=== PATIENT | female | born 1940 | race Caucasian/White ===

== ENCOUNTER 2021-05-19 17:41 | Emergency (ER) | payer MEDICARE, BC, SELFPAY ==
--- NOTE | ~2021-05-19 | CT_ITS ---
EXAMINATION: CT brain wo con DATE: 05/19/2021 18:44 INDICATION: Head injury. Headache. Laceration to the vertex of the head. TECHNIQUE: Computed tomography (CT) of the head was performed without intravenous contrast. The dose- length product was 605.33 mGy-cm. Automated exposure control and iterative reconstruction technique w ere employed. COMPARISON: None FINDINGS: Brain parenchymal volume is normal for age. There is left frontal scalp hematoma. No acute intracranial hemorrhage, infarction, mass or mass effect. No ventriculomegaly or midline shift. Basil ar cisterns are patent. Paranasal sinuses and mastoids are pneumatized. There is intracranial atheros clerosis. There are scattered mild periventricular and subcortical white matter changes, most likely related to small vessel ischemic disease (microangiopathy). IMPRESSION: 1. No acute intracranial abnormality. Reviewed, dictated and finalized at location A. [facility] CREDIT
--- NOTE | 2021-05-19 17:52 | ED.FALL ---
HPI - Fall General Chief Complaint: Head Injury Stated Complaint: scalp lac Time Seen by Provider: 05/19/21 17:50 Source: patient Mode of arrival: ambulatory Limitations: no limitations History of Present Illness HPI Narrative: This is a 80 year old female that presents to the ER for head injury just prior to arrival. Reports a cake stand fell off of the top of her cabinets and hit her in the head. Denies loss of consciousness. Reports laceration to the area. Reports hematoma to her forehead. She takes a baby aspirin daily. She is not up-to-date on tetanus. Denies vision changes, vomiting, numbness, or weakness. Related Data Allergies Allergy/AdvReac Type Severity Reaction Status Date / Time Penicillins Allergy Verified 05/19/21 18:18 Review of Systems Review of Systems: CONSTITUTIONAL: Denies fever EYES: Denies visual changes GASTROINTESTINAL: Denies vomiting NEUROLOGIC: Reports headache. Denies numbness, or weakness. All systems reviewed & are unremarkable except as noted in HPI and below PMFSH Past Medical History Medical History (Updated 05/19/21 @ 19:12 by Odalis Palm PA-C) History of hypothyroidism Surgical History Surgical History (Updated 05/19/21 @ 17:53 by Odalis Palm PA-C) History of hysterectomy History of thyroidectomy Social History Social History (Updated 05/19/21 @ 18:20 by Odalis Palm PA-C) Smoking status: Never smoker Exam Narrative: GENERAL: Elderly, well-nourished, and in no acute distress. HEAD: Normocephalic. Hematoma to the forehead. 3 cm linear laceration to the top of the scalp into subcutaneous tissue EYES: PERRLA and EOMI. ENT: Nares clear, no rhinorrhea or epistaxis. Mucous membranes moist. Oropharynx without tonsillar hypertrophy exudate or other lesions. Bilateral TMs pearly roman non-bulging NECK: Supple. No adenopathy or masses. No midline cervical spine tenderness CHEST: Clear to auscultation. No respiratory distress. No wheezes rales or rhonchi HEART: Regular rate and rhythm. No murmur heard. Normal peripheral pulses. EXTREMITIES: Normal range of motion. No edema. SKIN: Warm, dry, no rash. NEURO: No focal deficits. Alert and oriented x3. Cranial nerves II through XII grossly intact PSYCH: Normal mood and affect Course Vital Signs Vital signs: Vital Signs Temperature 98.0 F 05/19/21 18:01 Pulse Rate 93 05/19/21 18:01 Respiratory Rate 18 05/19/21 18:01 Blood Pressure 168/67 H 05/19/21 18:01 Pulse Oximetry 100 05/19/21 18:01 Temperature 98.0 F 05/19/21 18:01 Pulse Rate 93 05/19/21 18:01 Respiratory Rate 18 05/19/21 18:01 Blood Pressure 168/67 H 05/19/21 18:01 Pulse Oximetry 100 05/19/21 18:01 Procedures Laceration Laceration 1: Date: 05/19/21 Time: 19:09 Site: scalp Size (cm): 3 Description: linear Depth: simple, single layer Local Anesthetic: lidocaine 1% and with epi Amount of anesthesia used (mL): 3 Pre-repair: irrigated ====== Skin Level ====== Skin layer closed with: amy Number of sutures: 6 ====== Subcutaneous Layer ====== ====== Muscle Layer ====== ====== Tendon Layer ====== MDM - Fall MDM Narrative Medical decision making narrative: Patient presents emergency department after head injury today with contusions and laceration to the scalp. Patient is neurologically intact. CT scan of the brain is without acute findings. Patient's wound was irrigated and closed with amy. She was educated on wound care. She was updated on tetanus. Patient is stable and felt appropriate for further outpatient evaluation. Patient is to follow-up with primary care doctor. She was given warnings to return to the ER Imaging Data Radiologist's impression: ITS Impressions Head CT 05/19/21 18:45 IMPRESSION: 1. No acute intracranial abnormality. Critical Care Time Critical Care Time Criti
[2021-05-19 18:01] VITALS: BP 168/67; PULSE 93; RESP 18; TEMP 36.7; O2SAT 100
[2021-05-19] MEDS: ACETAMINOPHEN 500 MG TABLET 1000 MG PO (18:20)
[2021-05-19] MEDS: TETANUS,DIPHTHERIA,AC PERTUSSIS ADULT (0.5 ML) BOOSTRIX IM (18:21)
== END 2021-05-19 19:20 | disposition home or self-care (01) ==
PROVIDERS: Emergency Provider Emergency Medicine; PCP Internal Medicine
DX: S01.01XA Laceration without foreign body of scalp, initial encounter (principal); Z23 Encounter for immunization; E89.0 Postprocedural hypothyroidism; W20.8XXA Other cause of strike by thrown, projected or falling object, initial encounter
CPT/HCPCS: 12002; 70450; 90471; 90715; 99283; A9270

== ENCOUNTER 2022-12-15 12:28 | Emergency (ER) | payer MEDICARE, BC, SELFPAY ==
--- NOTE | 2022-12-15 12:38 | ED.LOWEXIN ---
HPI - Extremity Injury (Lower) General Chief Complaint: Extremity Injury, Lower Stated Complaint: Left Foot Pain Time Seen by Provider: 12/15/22 12:32 Source: patient Mode of arrival: ambulatory Limitations: no limitations History of Present Illness HPI Narrative: Patient is an 82-year-old female who presents with left foot pain after stepping on a nail last night, removed nail herself. Requesting tetanus shot. Denies any pain to foot, bleeding or oozing from wound. States she cleaned with hydrogen peroxide and applied antibiotic ointment. Related Data Home Medications Medication Instructions Recorded Confirmed levothyroxine 88 mcg tablet 88 mcg DIRECTED 12/15/22 12/15/22 (Synthroid) Allergies Allergy/AdvReac Type Severity Reaction Status Date / Time Penicillins Allergy Verified 05/19/21 18:18 Review of Systems Review of Systems: All systems reviewed & are unremarkable except as noted in HPI and below Constitutional: Constitutional: Denies body ache(s), Denies chills, Denies fatigue, Denies fever(s), Denies headache(s), Denies malaise and Denies weakness Eyes: Eyes: Denies blurry vision, Denies irritation and Denies loss of vision ENT: Denies otalgia, Denies headache(s), Denies nasal discharge, Denies sinus pain and Denies sore throat Cardiovascular: Cardiovascular: Denies chest pain, Denies irregular heart rhythm and Denies dyspnea Respiratory: Respiratory: Denies dyspnea Gastrointestinal: Gastrointestinal: Denies abdominal pain, Denies melena, Denies hematochezia, Denies diarrhea, Denies nausea and Denies vomiting Musculoskeletal: Musculoskeletal: Denies back pain, Denies myalgias and Denies arthralgias Integumentary/Breasts: Skin/Breast: Denies pruritus, Denies rash and Reports wounds Neurologic: Denies headache(s), Denies loss of vision and Denies weakness Psychiatric: Psychiatric: Reports no additional psychiatric complaints Endocrine: Endocrine: Denies fatigue PMFSH Past Medical History Medical History (Updated 12/15/22 @ 12:56 by Sherlyn Hooker APRN) History of hypothyroidism Surgical History Surgical History (Updated 05/19/21 @ 17:53 by Odalis Palm PA-C) History of hysterectomy History of thyroidectomy Social History Social History (Updated 05/19/21 @ 18:20 by Odalis Palm PA-C) Smoking status: Never smoker Comments At time of signature, agree with nursing past medical, surgical, social and family history. There is no relevant family history pertinent to the presenting complaint. Exam Const: General: cooperative, healthy appearing, comfortable, no acute distress and well nourished Nutritional Appearance: well nourished Orientation/consciousness: patient oriented x3 Limitations: no limitations HENMT: Head: normal to inspection, normocephalic and atraumatic Ears: hearing grossly normal bilaterally and external ears normal Face/Nose/Sinus: Normal external nose present, normal facial exam and face symmetric Face and sinus: normal facial exam and face symmetric Mouth: Yes lip normal Eyes: General: appearance normal, both eyes and all related structures Alignment and Position: alignment normal and position normal Periorbital: periorbital findings normal Eyelids: eyelids normal Pupils: Equal, round and reactive pupils present EOM: EOMs intact bilaterally Neck: Neck: normal visual inspection, full ROM and supple Chest: Chest palpation & inspection: normal inspection of the chest Resp: Effort & Inspection: normal respiratory effort and able to speak in complete sentences Auscultation: clear to auscultation bilaterally Cardio: Rate: regular rate Rhythm: regular rhythm Heart sounds: S1 normal heart sound present and S2 normal heart sound present GI: Inspection: normal to inspection Skin: General skin exam: normal color and no rashes or lesions noted Neuro: General: patient oriented x3 and moves all extremities Cranial nerves: Yes Equal, round and r
[2022-12-15 12:41] VITALS: BP 140/54; PULSE 91; RESP 18; TEMP 37.4; O2SAT 100
[2022-12-15 12:44] VITALS: BP 140/54; PULSE 91; RESP 18; TEMP 37.4; O2SAT 100
[2022-12-15] MEDS: TETANUS,DIPHTHERIA,AC PERTUSSIS ADULT (0.5 ML) BOOSTRIX IM (12:53)
== END 2022-12-15 13:14 | disposition home or self-care (01) ==
PROVIDERS: Emergency Provider Nurse Practitioner Family; PCP Internal Medicine
DX: S91.332A Puncture wound without foreign body, left foot, initial encounter (principal); W45.0XXA Nail entering through skin, initial encounter; Z23 Encounter for immunization; E89.0 Postprocedural hypothyroidism
CPT/HCPCS: 90471; 90715; 99212; G0463

== ENCOUNTER 2024-05-20 15:49 | Emergency (ER) | payer MEDICARE, BC, SELFPAY ==
--- NOTE | 2024-05-20 15:50 | ED_ITS ---
HPI - Wound/Laceration General Chief Complaint: Wound/Laceration Stated Complaint: Right Hand Thumb Laceration Time Seen by Provider: 05/20/24 15:50 Source: patient Mode of arrival: ambulatory Limitations: no limitations History of Present Illness HPI narrative: Melanie is an 83-year-old female patient presenting to the clinic today with complaints of a right hand thumb laceration that occurred just prior to arrival. She reports she has open up a can of corn when she could not open the hand completely she grabbed a knife and then cut her thumb on the side of the can. Bleeding is controlled at this time. Tetanus is up-to-date. Related Data Home Medications Medication Instructions Recorded Confirmed levothyroxine 88 mcg tablet 88 mcg PO DAILY 12/15/22 05/20/24 (Synthroid) amlodipine 5 mg tablet 5 mg PO DAILY 05/20/24 05/20/24 metformin 500 mg tablet 500 mg PO DAILY 05/20/24 05/20/24 metoprolol succinate 25 mg 25 mg PO DAILY 05/20/24 05/20/24 tablet,extended release 24 hr rosuvastatin 10 mg tablet 10 mg PO DAILY 05/20/24 05/20/24 Allergies Allergy/AdvReac Type Severity Reaction Status Date / Time Penicillins Allergy Hives Verified 05/20/24 15:52 Review of Systems Review of Systems: Pertinent positives per HPI. Patient denies any fever, chills, rash, headache, visual changes, dizziness, cough, runny nose, sore throat, shortness of breath, chest pain, palpitations, nausea, vomiting, diarrhea, constipation, abdominal pain, or any urinary issues. [facility] Past Medical History Medical History (Updated 05/20/24 @ 16:33 by Mikel Bond APRN) History of hypothyroidism Surgical History Surgical History History of hysterectomy History of thyroidectomy Social History Social History (Updated 05/19/21 @ 18:20 by Odalis Palm PA-C) Smoking status: Never smoker Comments At the time of my signature, I reviewed and agree with the nursing past medical, surgical, social, and family history. There is no relevant family history pertinent to the patient complaint. Exam Narrative: General: Well-developed, well nourished, in no apparent distress Head: Normocephalic, atraumatic. Cardio: Regular rate and rhythm, s1 and s2 normal, no murmur appreciated. Resp: Clear to auscultation bilaterally, no rhonchi, rales, wheezing or rubs. Integumentary: [place], warm, and dry, 1.5 cm distal volar thumb flap laceration without nail involvement. Bleeding controlled Course Course Emergency Course: Portions of this record may have been created with voice recognition software. Level of Care: Express Care Visit Vital Signs Vital signs: Vital Signs Temperature 36.3 C L 05/20/24 16:03 Pulse Rate 88 05/20/24 16:03 Respiratory Rate 16 05/20/24 16:03 Blood Pressure 156/64 H 05/20/24 16:03 Pulse Oximetry 100 05/20/24 16:03 Oxygen Delivery Room Air 05/20/24 16:03 Temperature 36.3 C L 05/20/24 16:03 Pulse Rate 88 05/20/24 16:03 Respiratory Rate 16 05/20/24 16:03 Blood Pressure 156/64 H 05/20/24 16:03 Pulse Oximetry 100 05/20/24 16:03 Oxygen Delivery Room Air 05/20/24 16:03 Vital signs reviewed Procedures Laceration Laceration 1: Date: 05/20/24 Site: hand (Right thumb) Side (If applicable): right Size (cm): 1.5 Description: flap and irregular Depth: simple, single layer Local Anesthetic: lidocaine 1% Amount of anesthesia used (mL): 1 Pre-repair: wound explored and irrigated ====== Skin Level ====== Skin layer closed with: nylon Size (cm): 5-0 Number of sutures: 3 Technique: simple, interrupted ====== Subcutaneous Layer ====== ====== Muscle Layer ====== ====== Tendon Layer ====== Dressing: Verbal consent obtained for laceration repair. Risk and benefits explained and p atient voiced understanding. Area was cleansed with antiseptic wound wash and a 25 gauge needle was then used to instill (1) ml of 1% lidocaine without epi into the wound edges. Area was prepped and draped using sterile technique. A 5-0 suture on a p needle was used to place (3) interrupted sutures bringing the wound edges together- well approximated. Patient tolerated procedure well. Sterile dressing applied. MDM - Wound/Laceration MDM Narrative Medical decision making narrative: At the time of visit patient is resting comfortably on the exam table. Patient appears to be nontoxic. Procedures: Laceration repair was performed interrupted sutures were placed into the wound bringing the wound edges well approximate. Patient tolerated well. Plan: Laceration repair was performed. Three interrupted sutures were placed. Supportive measures were discussed with the patient and they voiced understanding discharge instructions and agrees to treatment plan. Return precautions reviewed Differential Diagnosis Differential diagnosis: Likely laceration, abscess, abrasion and avulsion of skin Discharge Plan Discharge Clinical Impression: Laceration of thumb Qualifiers: Encounter type: initial encounter Damage to nail status: without damage Foreign body presence: without foreign body Laterality: right Qualified Code(s): S61.011A - Laceration without foreign body of right thumb without damage to nail, initial encounter Patient Disposition: Home, Self-Care Condition: Stable Instructions: Antibiotic Form, Finger Laceration (ED) Additional Instructions: Leave bandage on for 24 hours then may remove and apply band aide covering as needed. Wash daily with soap and water Keep wound clean and dry Skin sutures out in 7 days. Watch for signs and symptoms of infection- redness, streaking, swelling, purulent discharge, or increase in pain. Follow up with your PCP for suture removal or return to the Express care. Prescriptions: No Action levothyroxine [Synthroid] 88 mcg tablet 88 mcg PO DAILY metformin 500 mg tablet 500 mg PO DAILY amlodipine 5 mg tablet 5 mg PO DAILY metoprolol succinate 25 mg tablet extended release 24 hr 25 mg PO DAILY rosuvastatin 10 mg tablet 10 mg PO DAILY Follow-up/Referrals: Manuel,Dagmar Rodriguez MD [Primary Care Provider] - Time of Disposition: 16:32 Quality NIHSS Nursing Documentation ED NIHSS nursing documentation: reviewed/agree
[2024-05-20 16:03] VITALS: BP 156/64; PULSE 88; RESP 16; TEMP 36.3; O2SAT 100
[2024-05-20] MEDS: LIDOCAINE HCL 1% LOCAL INJ 2 ML AMPUL 4 ML INFILTRATE (16:14)
== END 2024-05-20 16:40 | disposition home or self-care (01) ==
PROVIDERS: Emergency Provider Nurse Practitioner Family; PCP Internal Medicine
DX: S61.011A Laceration without foreign body of right thumb without damage to nail, initial encounter (principal); Z79.899 Other long term (current) drug therapy; W26.0XXA Contact with knife, initial encounter
CPT/HCPCS: 12001; 99212; G0463; J2003

== ENCOUNTER 2024-05-27 12:10 | Emergency (ER) | payer MEDICARE, BC, SELFPAY ==
[2024-05-27 12:21] VITALS: BP 134/64; PULSE 89; RESP 16; TEMP 36.2; O2SAT 97
--- NOTE | 2024-05-27 12:22 | ED_ITS ---
HPI - Wound/Laceration General Chief Complaint: Wound/Laceration Stated Complaint: Stitches Removal Time Seen by Provider: 05/27/24 12:13 Source: patient Mode of arrival: ambulatory Limitations: no limitations History of Present Illness HPI narrative: Patient is an 83-year-old female who presents with 3 sutures in right thumb. Patient had them placed here 05/20. Patient concern for redness surrounding area Related Data Home Medications Medication Instructions Recorded Confirmed levothyroxine 88 mcg tablet 88 mcg PO DAILY 12/15/22 05/27/24 (Synthroid) amlodipine 5 mg tablet 5 mg PO DAILY 05/20/24 05/27/24 metformin 500 mg tablet 500 mg PO DAILY 05/20/24 05/27/24 metoprolol succinate 25 mg 25 mg PO DAILY 05/20/24 05/27/24 tablet,extended release 24 hr rosuvastatin 10 mg tablet 10 mg PO DAILY 05/20/24 05/27/24 Allergies Allergy/AdvReac Type Severity Reaction Status Date / Time Penicillins Allergy Hives Verified 05/27/24 12:11 Review of Systems Review of Systems: All systems reviewed & are unremarkable except as noted in HPI and below Constitutional: Constitutional: Denies body ache(s), Denies chills, Denies fatigue, Denies fever(s), Denies headache(s), Denies malaise and Denies weakness Eyes: Eyes: Denies blurry vision, Denies irritation and Denies loss of vision ENT: Denies otalgia, Denies headache(s), Denies nasal discharge, Denies sinus pain and Denies sore throat Cardiovascular: Cardiovascular: Denies chest pain, Denies irregular heart rhythm and Denies dyspnea Respiratory: Respiratory: Denies dyspnea Gastrointestinal: Gastrointestinal: Denies abdominal pain, Denies melena, Denies hematochezia, Denies diarrhea, Denies nausea and Denies vomiting Musculoskeletal: Musculoskeletal: Denies back pain, Denies myalgias and Denies arthralgias Integumentary/Breasts: Skin/Breast: Denies pruritus, Reports erythema and Denies rash Neurologic: Denies headache(s), Denies loss of vision and Denies weakness Psychiatric: Psychiatric: Reports no additional psychiatric complaints Endocrine: Endocrine: Denies fatigue PMFSH Past Medical History Medical History History of hypothyroidism Surgical History Surgical History History of hysterectomy History of thyroidectomy Social History Social History Smoking status: Never smoker Comments At time of signature, agree with nursing past medical, surgical, social and family history. There is no relevant family history pertinent to the presenting complaint. Exam Const: General: cooperative, healthy appearing, comfortable, no acute distress and well nourished Nutritional Appearance: well nourished Orientati on/consciousness: patient oriented x3 Limitations: no limitations HENMT: Head: normal to inspection, normocephalic and atraumatic Ears: hearing grossly normal bilaterally and external ears normal Face/Nose/Sinus: Normal external nose present, normal facial exam and face symmetric Face and sinus: normal facial exam and face symmetric Mouth: Yes lip normal Eyes: General: appearance normal, both eyes and all related structures Al ignment and Position: alignment normal and position normal Periorbital: periorbital findings normal Eyelids: eyelids normal Pupils: Equal, round and reactive pupils present EOM: EOMs intact bilaterally Neck: Neck: normal visual inspection, full ROM and supple Chest: Chest palpation & inspection: normal inspection of the chest Resp: Effort & Inspection: normal respiratory effort and able to speak in complete sentences Auscultation: clear to auscultation bilaterally Cardio: Rate: regular rate Rhythm: regular rhythm Heart sounds: S1 normal heart sound present and S2 normal heart sound present GI: Inspection: normal to inspection Skin: General skin exam: normal color and no rashes or lesions noted Neuro: General: patient oriented x3 and moves all extremities Cranial nerves: Yes Equal, round and reactive pupils present Speech: normal speech Gait exam (Neuro): Normal gait present Extrem: General: normal to inspection, full ROM and no edema Hand/finger images: 1. Healed laceration with surrounding erythema and warmth Psych: Appearance: grossly normal and well kempt Mental Status: mental status grossly normal Speech and movement: Normal speech and movement present Affect: normal affect Attitude: cooperative Thought process: Normal thought process present Course Course Emergency Course: Patient is aware of diagnosis, understands and agrees to treatment plan. Antic ipatory guidance given. Patient agrees to follow-up as directed and is aware of reasons to seek care at the emergency department. Portions of this record may have been created with voice recognition software Level of Care: Express Care Visit Vital Signs Vital signs: Vital Signs Temperature 36.2 C L 05/27/24 12:21 Pulse Rate 89 05/27/24 12:21 Respiratory Rate 16 05/27/24 12:21 Blood Pressure 134/64 05/27/24 12:21 Pulse Oximetry 97 05/27/24 12:21 Oxygen Delivery Room Air 05/27/24 12:21 Temperature 36.2 C L 05/27/24 12:21 Pulse Rate 89 05/27/24 12:21 Respiratory Rate 16 05/27/24 12:21 Blood Pressure 134/64 05/27/24 12:21 Pulse Oximetry 97 05/27/24 12:21 Oxygen Delivery Room Air 05/27/24 12:21 Reviewed MDM - Wound/Laceration MDM Narrative Medical decision making narrative: 3 sutures removed Exam findings show no acute concerns or changes; patient is non-toxic appearing and is in no distress.? Patient is appropriate for outpatient treatment and follow-up. Discharge instructions reviewed with patient, as well as provided in writing per nursing staff. The instructions also include specific and strict return/GO TO THE ER as well as f/u information. All questions have been answered, and the patient deny any further questions with discharge and discharge plan. Differential Diagnosis Differential diagnosis: Likely laceration and other (Cellulitis) Medical Records Attestation: I reviewed the patient's medical records. Discharge Plan Discharge Clinical Impression: Cellulitis Qualifiers: Site of cellulitis: extremity Site of cellulitis of extremity: finger Laterality: right Qualified Code(s): L03.011 - Cellulitis of right finger Patient Disposition: Home, Self-Care Condition: Stable Instructions: Cellulitis (ED) Additional Instructions: Please follow up with your Primary Care Doctor within 48-72 hours - call for an appointment. Rest and elevate affected area; apply moist heat 3-4 times daily for 10-15 minutes. Take Motrin 600mg every 8 hours with food for pain. Please take Antibiotics as directed. If you experience any worsening redness, swelling, streaking (red lines), fever or chills please go to the ER Prescriptions: New cefuroxime axetil 500 mg tablet 500 mg PO BID 5 Days Qty: 10 0RF No Action levothyroxine [Synthroid] 88 mcg tablet 88 mcg PO DAILY metformin 500 mg tablet 500 mg PO DAILY amlodipine 5 mg tablet 5 mg PO DAILY metoprolol succinate 25 mg tablet extended release 24 hr 25 mg PO DAILY rosuvastatin 10 mg tablet 10 mg PO DAILY Follow-up/Referrals: Manuel,Dagmar Rodriguez MD [Primary Care Provider] - 3 Days Time of Disposition: 12:32
== END 2024-05-27 12:35 | disposition home or self-care (01) ==
PROVIDERS: Emergency Provider Nurse Practitioner Family; PCP Internal Medicine
DX: T81.41XA Infection following a procedure, superficial incisional surgical site, initial encounter (principal); L03.011 Cellulitis of right finger; S61.011D Laceration without foreign body of right thumb without damage to nail, subsequent encounter; X58.XXXD Exposure to other specified factors, subsequent encounter; E89.0 Postprocedural hypothyroidism
CPT/HCPCS: 99213; G0463

== ENCOUNTER 2024-12-15 15:59 | Emergency (ER) | payer MEDICARE, BC, SELFPAY ==
[2024-12-15 16:13] VITALS: BP 138/62; PULSE 82; RESP 16; TEMP 37.2; O2SAT 100
--- NOTE | 2024-12-15 16:38 | ED.SKABFB ---
HPI - Skin/Abscess/Foreign Bdy General Chief complaint: Extremity Problem,Nontraumatic Stated complaint: hands are numb/burning Time Seen by Provider: 12/15/24 16:01 Source: patient Mode of arrival: ambulatory Limitations: no limitations History of Present Illness HPI narrative: Patient is 84-year-old female who presents with bilateral hand burning numb irritation after coming in contact with 45% vinegar trying to kill weeds. Patient wrist hand under water and then used [place] dish soap to wash hands. Patient states hands feel dry, stiff and burning. Denies any blisters or open wounds. Related Data Home Medications ?Medication ?Instructions ?Recorded ?Confirmed ?Last Taken ?Type levothyroxine 88 mcg tablet 88 mcg PO DAILY 12/15/22 05/27/24 Unknown History (Synthroid) amlodipine 5 mg tablet 5 mg PO DAILY 05/20/24 05/27/24 Unknown History metformin 500 mg tablet 500 mg PO DAILY 05/20/24 05/27/24 Unknown History metoprolol succinate 25 mg 25 mg PO DAILY 05/20/24 05/27/24 Unknown History tablet,extended release 24 hr rosuvastatin 10 mg tablet 10 mg PO DAILY 05/20/24 05/27/24 Unknown History aspirin 81 mg tablet,delayed 81 mg PO DAILY 12/15/24 Unknown History release (Adult Aspirin Regimen) Allergies Allergy/AdvReac Type Severity Reaction Status Date / Time Penicillins Allergy Hives Verified 12/15/24 16:12 Review of Systems Review of Systems: All systems reviewed & are unremarkable except as noted in HPI and below Constitutional: Constitutional: Denies body ache(s), Denies chills, Denies fatigue, Denies fever(s), Denies headache(s), Denies malaise and Denies weakness Eyes: Eyes: Denies blurry vision, Denies irritation and Denies loss of vision ENT: Denies otalgia, Denies headache(s), Denies nasal discharge, Denies sinus pain and Denies sore throat Cardiovascular: Cardiovascular: Denies chest pain, Denies irregular heart rhythm and Denies dyspnea Respiratory: Respiratory: Denies dyspnea Gastrointestinal: Gastrointestinal: Denies abdominal pain, Denies melena, Denies hematochezia, Denies diarrhea, Denies nausea and Denies vomiting Musculoskeletal: Musculoskeletal: Denies back pain, Denies myalgias and Denies arthralgias Integumentary/Breasts: Skin/Breast: Denies pruritus, Denies rash and Reports skin pain Neurologic: Denies headache(s), Denies loss of vision and Denies weakness Psychiatric: Psychiatric: Reports no additional psychiatric complaints Endocrine: Endocrine: Denies fatigue PMFSH Past Medical History Medical History History of hypothyroidism Surgical History Surgical History History of thyroidectomy History of hysterectomy Social History Social History Smoking status: Never smoker Comments At time of signature, agree with nursing past medical, surgical, social and family history. There is no relevant family history pertinent to the presenting complaint. Exam Const: General: cooperative, healthy appearing, comfortable, no acute distress and well nourished Nutritional Appearance: well nourished Orientation/consciousness: patient oriented x3 Limitations: no limitations HENMT: Head: normal to inspection, normocephalic and atraumatic Ears: hearing grossly normal bilaterally and external ears normal Face/Nose/Sinus: Normal external nose present, normal facial exam and face symmetric Face and sinus: normal facial exam and face symmetric Mouth: Yes lip normal Eyes: General: appearance normal, both eyes and all related structures Alignment and Position: alignment normal and position normal Periorbital: periorbital findings normal Eyelids: eyelids normal Pupils: Equal, round and reactive pupils present EOM: EOMs intact bilaterally Neck: Neck: normal visual inspection, full ROM and supple Chest: Chest palpation & inspection: normal inspection of the chest Resp: Effort & Inspection: normal respiratory effort and able to speak in complete sentences Auscultation: clear to auscultation bilaterally Cardio: Rate: regular rate Rhythm: regular rhythm Heart sounds: S1 normal heart sound present and S2 normal heart sound present GI: Inspection: normal to inspection Skin: General skin exam: normal color and no rashes or lesions noted Neuro: General: patient oriented x3 and moves all extremities Cranial nerves: Yes Equal, round and reactive pupils present Speech: normal speech Gait exam (Neuro): Normal gait present Extrem: General: normal to inspection, full ROM and no edema Right upper extremity: wrist normal to inspection, normal ROM, normal vascular exam and radial pulse present; no tenderness and no swelling and Extremity exam: right hand normal to inspection, normal capillary refill, neuromotor exam normal wrist extension normal, thumb opposition normal, thumb IP flexion normal, thumb ADduction normal and fingers 2-5 ABduction normal, neurosensory exam normal radial nerve sensory function normal, ulnar nerve sensory function normal, median nerve sensory function normal and digital nerve sensory function normal, tendon exam normal of all digits extensor tendon, flexor digitorum profundus and flexor digitorum superficialis, normal ROM of fingers, no swelling and other (skin is dry and tough ); no tenderness and no unusual warmth Left upper extremity: wrist normal to inspection, normal ROM, normal vascular exam and radial pulse present; no tenderness and no swelling and hand normal to inspection, normal capillary refill, neuromotor exam normal Details: wrist extension normal, thumb opposition normal, thumb IP flexion normal, thumb ADduction normal and fingers 2-5 ABduction normal, neurosensory exam normal Details: radial nerve sensory function normal, ulnar nerve sensory function normal, median nerve sensory function normal and digital nerve sensory function normal, tendon exam normal Location: of all digits Details: extensor tendon, flexor digitorum profundus and flexor digitorum superficialis, normal ROM of fingers, no swelling and other (skin is dry and tough ); no tenderness and no unusual warmth Psych: Appearance: grossly normal and well kempt Mental Status: mental status grossly normal Speech and movement: Normal speech and movement present Affect: normal affect Attitude: cooperative Thought process: Normal thought process present Course Course Emergency Course: Patient is aware of diagnosis, understands and agrees to treatment plan. Anticipatory guidance given. Patient agrees to follow-up as directed and is aware of reasons to seek care at the emergency department. Portions of this record may have been created with voice recognition software Level of Care: Express Care Visit Vital Signs Vital signs: Vital Signs Temperature 37.2 C 12/15/24 16:13 Pulse Rate 82 12/15/24 16:13 Respiratory Rate 16 12/15/24 16:13 Blood Pressure 138/62 12/15/24 16:13 Pulse Oximetry 100 12/15/24 16:13 Oxygen Delivery Room Air 12/15/24 16:13 Temperature 37.2 C 12/15/24 16:13 Pulse Rate 82 12/15/24 16:13 Respiratory Rate 16 12/15/24 16:13 Blood Pressure 138/62 12/15/24 16:13 Pulse Oximetry 100 12/15/24 16:13 Oxygen Delivery Room Air 12/15/24 16:13 Reviewed MDM - Skin/Abscess/Foreign Bdy MDM Narrative Medical decision making narrative: Spoke to [employer] [employer]( ). Based on recommendations for an patient hands under warm water for 15 minutes. Patient reports moderate relief of symptoms. Will provide patient with steroid cream for itchiness along with recommending Aquaphor. Pt well hydrated appearing, in no respiratory distress, hemodynamically stable. Recommend supportive care. The patient is stable at time of discharge the clinical impression was discussed and the patient was given the opportunity to ask questions, which were addressed as completely as possible given the information available at present. Anticipatory guidance and return to care precautions were discussed and the importance of primary care follow-up was stressed and encouraged. The patient voiced understanding of the plan, indications to return, and the need for follow-up. Exam findings show no acute concerns or changes Patient is appropriate for outpatient treatment and follow-up. Differential Diagnosis Differential diagnosis: Likely allergic reaction to drug, cellulitis, contact dermatitis and other (Chemical burn) Medical Records Attestation: I reviewed the patient's medical records. Discharge Plan Discharge Clinical Impression: Chemical burn Patient Disposition: Home Condition: Stable Instructions: Chemical Skin Burn (ED) Additional Instructions: The most important part of your care is follow up with Primary care provider. Avoid hot showers, Take cool showers. Wash the area with gentle soap and water only. Use skin cream as prescribed to reduce itchiness Avoid scratching when possible to prevent worsening of the condition and disruption of the skin that could lead to bacterial infection To relieve itching, place a cool washcloth or some ice over the area that itches, rather than scratching Follow up with primary care provider or seek ER if you have trouble breathing, become hoarse, or start wheezing, develop belly cramps, vomiting or feel dizzy. Patient Language: Egyptian Prescriptions: New triamcinolone acetonide 0.1 % cream 1 applic topical TID 5 Days Qty: 80 0RF No Action levothyroxine [Synthroid] 88 mcg tablet 88 mcg PO DAILY aspirin [Adult Aspirin Regimen] 81 mg tablet,delayed release (DR/EC) 81 mg PO DAILY metformin 500 mg tablet 500 mg PO DAILY amlodipine 5 mg tablet 5 mg PO DAILY metoprolol succinate 25 mg tablet extended release 24 hr 25 mg PO DAILY rosuvastatin 10 mg tablet 10 mg PO DAILY Follow-up/Referrals: Manuel,Dagmar Rodriguez MD [Primary Care Provider] - 3 Days Time of Disposition: 17:11
== END 2024-12-15 17:15 | disposition home or self-care (01) ==
PROVIDERS: Emergency Provider Nurse Practitioner Family; PCP Internal Medicine
DX: T65.891A Toxic effect of other specified substances, accidental (unintentional), initial encounter (principal); T23.402A Corrosion of unspecified degree of left hand, unspecified site, initial encounter; T23.401A Corrosion of unspecified degree of right hand, unspecified site, initial encounter; T32.0 Corrosions involving less than 10% of body surface; Z79.82 Long term (current) use of aspirin
CPT/HCPCS: 99213; G0463